=== PATIENT | male | born 1990 | race African-American/Black ===

== ENCOUNTER 2016-11-28 16:14 | Emergency (ER) | payer MEDICAID, OTHER ==
[~2016-11-28] VITALS: Ht 180.3 cm; Wt 76.2 kg
--- NOTE | 2016-11-28 16:25 | NUR ---
PT WHEELED TO ER BED 12. PRESENTS W/ L SHOULDER DISLOCATION. MULTIPLE HX OF DISLOCATION TO SAME SHOULDER. 03/13 PAIN. GOWNED AND PLACED ON MONITOR. AWAITING MD MENDOZA.
--- NOTE | 2016-11-28 16:51 | NUR ---
DR PELAYO AT BEDSIDE FOR EVAL.
[2016-11-28] MEDS ORDERED: MORPHINE SULFATE INJ 2 MG/ML DISP.SYRIN IV ONE (17:00)
[2016-11-28] MEDS ORDERED: ONDANSETRON HCL/PF - ER 4 MG/2 ML VIAL IV ONE (17:00)
[2016-11-28] MEDS ORDERED: PROPOFOL 200 MG/20 ML VIAL IV ONE (17:00)
[2016-11-28] MEDS ORDERED: MORPHINE SULFATE INJ 2 MG/ML DISP.SYRIN ONE (17:01)
[2016-11-28] MEDS ORDERED: ONDANSETRON HCL/PF 4 MG/2 ML VIAL ONE (17:02)
[2016-11-28] MEDS ORDERED: PROPOFOL 20 ML IV ONE (17:02)
[2016-11-28] MEDS ORDERED: IV NS 0.9% 1,000 ML ONE (17:03)
[2016-11-28] MEDS ORDERED: IV SET PRIMARY 1 EA INFUS.SET MC ONE (17:03)
--- NOTE | 2016-11-28 17:12 | NUR ---
RADIOLOGY AT BEDSIDE FOR L SHOULDER XRAY.
--- NOTE | 2016-11-28 17:24 | NUR ---
DR PELAYO, RT TECH POORNIMA AT BEDSIDE FOR L SHOULDER REDUCTION.
--- NOTE | 2016-11-28 17:29 | NUR ---
Note avery in EDM - 11/28/16 at 1752 by SHAWN PT WHEELED TO ER BED 12. PRESENTS W/ L SHOULDER DISLOCATION. MULTIPLE HX OF DISLOCATION TO SAME SHOULDER. 03/13 PAIN. GOWNED AND PLACED ON MONITOR. AWAITING MD MENDOZA.
--- NOTE | 2016-11-28 17:33 | NUR ---
PT NOW FULLY AWAKE. STATES FEELING MUCH BETTER. AWAITING POST REDUCTION XRAY.
--- NOTE | 2016-11-28 18:20 | NUR ---
PROVIDED W/ SHOULDER IMMOBILIZER. IVHL DISCONTINUED. PT D/C HOME IN STABLE CONDITION.
[2016-11-28 18:21] VITALS: BP 125/84
[2016-11-28] MEDS ORDERED: IV NS 0.9% 1,000 ML BAG IV ONE (18:30)
== END 2016-11-28 18:22 | disposition home or self-care (01) ==
LOC: ER 16:18
DX: M24.412 Recurrent dislocation, left shoulder (principal); X58.XXXA Exposure to other specified factors, initial encounter; Y92.89 Other specified places as the place of occurrence of the external cause; Y93.89 Activity, other specified; Y99.8 Other external cause status
CPT/HCPCS: 23650; 73020; 73030; 96374; 96375; 99285; A4606; J2270; J2405; J2704; J7030; Z7610

== ENCOUNTER 2017-01-01 19:27 | Emergency (ER) | payer MEDICAID ==
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
[2017-01-01] MEDS ORDERED: ONDANSETRON HCL/PF - ER 4 MG/2 ML VIAL IV ONE (20:00)
[2017-01-01] MEDS ORDERED: PROPOFOL 200 MG/20 ML VIAL IV ONE (20:00)
[2017-01-01] MEDS ORDERED: MORPHINE SULFATE INJ 2 MG/ML DISP.SYRIN IV ONE (20:00)
[2017-01-01] MEDS ORDERED: ONDANSETRON HCL/PF 4 MG/2 ML VIAL ONE (20:10)
[2017-01-01] MEDS ORDERED: MORPHINE SULFATE INJ 2 MG/ML DISP.SYRIN ONE (20:11)
[2017-01-01] MEDS ORDERED: PROPOFOL 20 ML IV ONE (20:11)
--- NOTE | 2017-01-01 20:20 | NUR ---
CONSCIOUS SEDATION STARTED RT AT BEDSIDE, CONSENT FORM SIGNED, MD PELAYO AT BEDSIDE, WILL CONTINUE TO MONITOR.
--- NOTE | 2017-01-01 20:25 | NUR ---
PT SHOULDER BACK INTO PLACE MD AND RT AT BEDSIDE, VSS WILL CONTINUE TO MONITOR.
--- NOTE | 2017-01-01 20:52 | NUR ---
PT STILL SLEEPING, VSS WILL CONTINUE TO MONITOR.
--- NOTE | 2017-01-01 21:12 | NUR ---
PT A/OX4 BREATHING EFFORTLESSLY ON ROOM AIR, PT IS WALKING WITH A STEADY GAIT, AND STATES HE IS FEELING WAY BETTERPatient discharged to home in stable condition. Written and verbal after care instructions given. Patient verbalizes understanding of instruction.IV removed. Catheter intact and site benign. Pressure and 4x4 applied to site. No bleeding noted.
[2017-01-01 21:14] VITALS: BP 128/71
== END 2017-01-01 21:15 | disposition home or self-care (01) ==
LOC: ER 19:28
DX: S43.005A Unspecified dislocation of left shoulder joint, initial encounter (principal); V00.131A Fall from skateboard, initial encounter; F17.200 Nicotine dependence, unspecified, uncomplicated; Y93.51 Activity, roller skating (inline) and skateboarding; Y92.89 Other specified places as the place of occurrence of the external cause; Y99.8 Other external cause status
CPT/HCPCS: 73020; J2270; J2405; J2704

== ENCOUNTER 2020-02-21 09:32 | Emergency (ER) | payer MEDICAID ==
[~2020-02-21] VITALS: Ht 170.2 cm; Wt 77.1 kg
[2020-02-21] MEDS ORDERED: HYDROCODONE/APAP 5/325MG TABLET ONE (09:57)
[2020-02-21] MEDS ORDERED: HYDROCODONE/APAP 5/325MG TABLET PO ONE (10:00)
--- NOTE | 2020-02-21 10:00 | NUR ---
eduardo at bedside for x-ray
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
[2020-02-21 10:32] VITALS: BP 128/66
--- NOTE | 2020-02-21 10:33 | NUR ---
Patient discharged to home in stable condition. Written and verbal after care instructions given. Patient verbalizes understanding of instruction.
== END 2020-02-21 10:33 | disposition home or self-care (01) ==
LOC: ER 09:35
DX: S40.012A Contusion of left shoulder, initial encounter (principal); Y08.89XA Assault by other specified means, initial encounter; Y93.89 Activity, other specified; Y92.89 Other specified places as the place of occurrence of the external cause; Y99.8 Other external cause status
CPT/HCPCS: 73030-TC